=== PATIENT | male | born 1980 | race Caucasian/White ===

== ENCOUNTER 2017-12-11 10:27 | Emergency (ER) | payer OTHER ==
[~2017-12-11 10:27] MED LIST: ACCUNE1 IN; AMOXICILLIN500 MG OR; BACTRIM DS1 TAB OR; CARAFATE OR; CIPROFLOXACN500 MG PO; DOXYCYCL HYC100 M4 PO; FLEXERIL PO; LORTAB 10 PO; LORTAB 5 OR; LORTAB5 PO; MOTRIN800 MG OR; MOTRIN800 MG/TAB PO; MULTI FOR HIM PO; NAPROSYN500 MG OR; NO; NO HOME MEDS; OMEPRAZOLE20 MG PO; PREVACID30 M1 PO; PRILOSEC20 MG/CAP PO; TAM75CAP OR; TORADOL OR; VALACYCLOVIR HCL1 GM PO; VISTARIL 50MG C50 M1 PO; ZOFRAN ODT4 MG OR
== END 2017-12-11 11:00 | disposition left against medical advice (07) | DRG 951 ==
LOC: ED 10:27 → LWOBS 11:00
DX: Z91.19 Patient's noncompliance with other medical treatment and regimen (principal)

== ENCOUNTER 2021-12-17 18:02 | Emergency (ER) | payer BC ==
[2021-12-17] VITALS (7 sets, daily range): BP systolic 107–129; BP diastolic 65–81
[~2021-12-17] VITALS: Ht 172.7 cm; Wt 113.6 kg
[2021-12-17 19:46] LABS: URINE BLOOD DIPSTICK NEGATIVE (NEGATIVE); URINE COLOR YELLOW; URINE GLUCOSE - DIPSTICK NEGATIVE (NEGATIVE); URINE KETONE NEGATIVE (NEGATIVE); URINE LEUK ESTERASE NEGATIVE (NEGATIVE); URINE PROTEIN - DIPSTICK TRACE mg/dL (NEG-TRACE); URINE SPECIFIC GRAVITY >=1.030; URINE UROBILINOGEN - DIPSTICK 0.2 E.U./dL (0.2)
[2021-12-17 19:54] LABS: URINE BILIRUBIN - DIPSTICK SMALL (NEGATIVE)
[2021-12-17 19:56] LABS: IMMATURE GRANULOCYTES 0.1 % (0.0-5.0); MEAN CORPUSCULAR HGB CONC 29.4 g/dL CAL (32.0-36.0); NEUT# 5.26 thou/uL (1.82-7.42); RED BLOOD COUNT 4.04 mill/uL (4.70-6.10); RED CELL DISTRI WIDTH 17.5 % (11.5-15.5); URINE NITRITE - DIPSTICK NEGATIVE (Negative)
[2021-12-17 20:04] LABS: HEMATOCRIT 35.7 % (39.0-50.0); HEMOGLOBIN 10.5 g/dl (14.0-18.0); MEAN CELL VOLUME 88.4 fL CALC (80.0-100.0)
[2021-12-17 20:10] LABS: ALBUMIN 4.4 g/dL (3.2-5.0); ALKALINE PHOSPHATASE 92 u/l (38-126); ANION GAP 15 (6-22 (CALC)); BILIRUBIN, TOTAL 0.7 mg/dL (0.0-1.4); BUN 12 mg/dL (9-20); BUN/CREATININE RATIO 10 (12-20 (CALC)); CARBON DIOXIDE 27 mmol/l (22-30); CHLORIDE 101 mmol/l (95-108); CREATININE 1.1 mg/dL (0.7-1.3); GFR > 60 ML/MIN (>=60 (CALC)); GFR FOR AFR.AMER. > 60 ML/MIN (>=60 (CALC)); POTASSIUM 3.8 mmol/l (3.5-5.1); SGOT/AST 38 u/l (17-59); SODIUM 139 mmol/l (137-146); TOTAL PROTEIN 8.1 g/dL (6.3-8.2)
[2021-12-17] MEDS ORDERED: CELEXA20 MG PO (21:00)
[2021-12-17] MEDS ORDERED: LIPITOR40 M1 PO (21:01)
[2021-12-17] MEDS ORDERED: WELLBUTRIN XL300 MG (21:01)
[2021-12-17] MEDS ORDERED: IMODIUM2 MG PO (22:27)
== END 2021-12-17 22:44 | disposition home or self-care (01) | DRG 103 ==
LOC: ED 18:02
PROVIDERS: Family Medicine
DX: R51.9 Headache, unspecified (principal); R50.9 Fever, unspecified; M54.2 Cervicalgia; R19.7 Diarrhea, unspecified; F17.200 Nicotine dependence, unspecified, uncomplicated; Z20.822 Contact with and (suspected) exposure to COVID-19

== ENCOUNTER 2022-12-11 12:28 | Emergency (ER) | payer OTHER ==
[~2022-12-11] VITALS: Ht 172.7 cm; Wt 118.0 kg
[~2022-12-11 12:28] MED LIST changes: +CELEXA20 MG PO; +IMODIUM2 MG PO; +LIPITOR40 M1 PO; +WELLBUTRIN XL300 MG
[2022-12-11 14:36] VITALS: BP 151/81
[2022-12-11 14:45] VITALS: BP 145/78
[2022-12-11 15:08] LABS: BASO% 0.3 % (0-3); EOS% 0.4 % (0-8); HEMATOCRIT 36.2 % (39.0-50.0); HEMOGLOBIN 10.8 g/dl (14.0-18.0); IMMATURE GRANULOCYTES 0.1 % (0.0-5.0); LYMPH% 15.4 % (15-41); MEAN CELL VOLUME 87.4 fL CALC (80.0-100.0); MEAN CORPUSCULAR HGB 26.1 pG CALC (26.0-32.0); MEAN CORPUSCULAR HGB CONC 29.8 g/dL CAL (32.0-36.0); MONO% 6.3 % (2-13); NEUT# 9.29 thou/uL (1.82-7.42); NEUT% 77.5 % (42-76); RED BLOOD COUNT 4.14 mill/uL (4.70-6.10); RED CELL DISTRI WIDTH 18.1 % (11.5-15.5)
[2022-12-11 15:20] LABS: ALBUMIN 4.7 g/dL (3.2-5.0); ALKALINE PHOSPHATASE 92 u/l (38-126); ANION GAP 14 (6-22 (CALC)); BILIRUBIN, TOTAL 0.8 mg/dL (0.2-1.3); BUN 15 mg/dL (9-20); BUN/CREATININE RATIO 16 (12-20 (CALC)); CARBON DIOXIDE 27 mmol/l (22-30); CHLORIDE 102 mmol/l (95-108); GFR FOR AFR.AMER. > 60 ML/MIN (>=60 (CALC)); GFR OTHER RACES > 60 ML/MIN (>=60 (CALC)); LIPASE 117 u/l (23-300); POTASSIUM 4.5 mmol/l (3.5-5.1); SGOT/AST 35 u/l (17-59); SODIUM 139 mmol/l (137-146); TOTAL PROTEIN 8.2 g/dL (6.3-8.2)
[2022-12-11 17:14] LABS: URINE BILIRUBIN - DIPSTICK NEGATIVE (NEGATIVE); URINE BLOOD DIPSTICK NEGATIVE (NEGATIVE); URINE COLOR YELLOW; URINE GLUCOSE - DIPSTICK NEGATIVE (NEGATIVE); URINE KETONE NEGATIVE (NEGATIVE); URINE LEUK ESTERASE NEGATIVE (NEGATIVE); URINE PROTEIN - DIPSTICK NEGATIVE (NEG-TRACE); URINE UROBILINOGEN - DIPSTICK 0.2 E.U./dL (0.2)
[2022-12-11 17:15] LABS: URINE NITRITE - DIPSTICK NEGATIVE (Negative)
[2022-12-11] MEDS ORDERED: HYDROCO/APAP1 TA9 PO (18:46)
[2022-12-11] MEDS ORDERED: BENZONATATE200 MG PO (18:46)
[2022-12-11] MEDS ORDERED: DICYCLOMINE10 MG PO (18:46)
[2022-12-11 19:01] VITALS: BP 145/78
== END 2022-12-11 19:14 | disposition home or self-care (01) | DRG 392 ==
LOC: ED 12:28
PROVIDERS: Nurse Practitioner
DX: R10.9 Unspecified abdominal pain (principal)
CPT/HCPCS: Q9967

== ENCOUNTER 2023-01-01 19:05 | Emergency (ER) | payer OTHER ==
[~2023-01-01] VITALS: Ht 172.7 cm; Wt 120.0 kg
[~2023-01-01 19:05] MED LIST changes: +BENZONATATE200 MG PO; +DICYCLOMINE10 MG PO; +HYDROCO/APAP1 TA9 PO
[2023-01-01 19:36] LABS: URINE BILIRUBIN - DIPSTICK NEGATIVE (NEGATIVE); URINE BLOOD DIPSTICK NEGATIVE (NEGATIVE); URINE COLOR YELLOW; URINE GLUCOSE - DIPSTICK NEGATIVE (NEGATIVE); URINE KETONE NEGATIVE (NEGATIVE); URINE LEUK ESTERASE NEGATIVE (NEGATIVE); URINE PROTEIN - DIPSTICK NEGATIVE (NEG-TRACE); URINE SPECIFIC GRAVITY <=1.005; URINE UROBILINOGEN - DIPSTICK 0.2 E.U./dL (0.2)
[2023-01-01 19:37] LABS: BASO% 0.5 % (0-3); EOS% 1.5 % (0-8); HEMATOCRIT 34.1 % (39.0-50.0); HEMOGLOBIN 10.7 g/dl (14.0-18.0); IMMATURE GRANULOCYTES 0.1 % (0.0-5.0); LYMPH% 37.3 % (15-41); MEAN CELL VOLUME 84.2 fL CALC (80.0-100.0); MEAN CORPUSCULAR HGB 26.4 pG CALC (26.0-32.0); MEAN CORPUSCULAR HGB CONC 31.4 g/dL CAL (32.0-36.0); MONO% 8.6 % (2-13); NEUT# 3.88 thou/uL (1.82-7.42); RED BLOOD COUNT 4.05 mill/uL (4.70-6.10); RED CELL DISTRI WIDTH 18.1 % (11.5-15.5)
[2023-01-01 19:39] LABS: URINE NITRITE - DIPSTICK NEGATIVE (Negative)
[2023-01-01 19:50] LABS: ALBUMIN 4.8 g/dL (3.2-5.0); ALKALINE PHOSPHATASE 86 u/l (38-126); ANION GAP 19 (6-22 (CALC)); BILIRUBIN, TOTAL 0.5 mg/dL (0.2-1.3); BUN 14 mg/dL (9-20); BUN/CREATININE RATIO 13 (12-20 (CALC)); CARBON DIOXIDE 23 mmol/l (22-30); CHLORIDE 101 mmol/l (95-108); ETHYL ALCOHOL 228 mg/dl (0-30); GFR FOR AFR.AMER. > 60 ML/MIN (>=60 (CALC)); GFR OTHER RACES > 60 ML/MIN (>=60 (CALC)); POTASSIUM 4.1 mmol/l (3.5-5.1); SGOT/AST 35 u/l (17-59); SODIUM 139 mmol/l (137-146); TOTAL PROTEIN 7.8 g/dL (6.3-8.2)
[2023-01-01 20:02] LABS: PROTHROMBIN TIME 9.9 SECONDS (9.0-12.5)
[2023-01-01 20:13] VITALS: BP 122/73
[2023-01-01 20:15] VITALS: BP 119/64
[2023-01-01 20:16] VITALS: BP 110/66
[2023-01-01 20:31] VITALS: BP 112/58
[2023-01-01 20:32] VITALS: BP 112/58
== END 2023-01-01 20:50 | disposition home or self-care (01) | DRG 312 ==
LOC: ED 19:05
PROVIDERS: Family Medicine
DX: R55 Syncope and collapse (principal); F10.129 Alcohol abuse with intoxication, unspecified; Y90.7 Blood alcohol level of 200-239 mg/100 ml

== ENCOUNTER 2023-02-04 08:52 | Observation (INO) | payer OTHER ==
[2023-02-04] VITALS (8 sets, daily range): BP systolic 111–127; BP diastolic 48–77
[~2023-02-04] VITALS: Ht 172.7 cm; Wt 117.9 kg
[~2023-02-04 08:52] MED LIST changes: +ATORVASTATIN CA80 MG PO; +OMEPRAZOLE DR40 MG PO
--- NOTE | 2023-02-04 20:10 | NUR ---
[facility] PT STATES THAT IS PAIN AND TORADOL WAS NOT EFFECTIVE. WILL REEVALUATE. JJ DRAINED. INCICION INSPECTED AND APPEARS TO BE DOING WELL. PT IS SITTING UP IN RECLINER. STATES THAT ITS THE MOST COMFORTABLE SPOT.CALL LIGHT WITHIN REACH AND SAFETY PRECAUTION IN PLACE.
--- NOTE | 2023-02-05 00:20 | NUR ---
PT IS IN REMIGIO SITTING UP DUE TO THE PAIN ABDOMEN. PT STATES THAT PAIN IS STILL A 7 OUT OF 10. MED ADMINISTERED. CALL LIGHT WITHIN REACH AND SAFETY PRECAUTIONS IN PLACE.
[2023-02-05 04:00] VITALS: BP 106/57
[2023-02-05 04:38] VITALS: BP 106/57
--- NOTE | 2023-02-05 04:40 | NUR ---
PT IS SITTING UP IN BED. PT STATES THAT HE CURRENTLY DOES NOT NEED ANYTHING FOR PAIN PT STATES THAT THERE IS NO PAIN WHEN THERE IS NO MOVEMENT. CALL LIGHT WITHIN REACH AND SAFETY PRCAUTIONS IN PLACE.
[2023-02-05 05:48] LABS: BASO% 0.4 % (0-3); EOS% 1.4 % (0-8); HEMATOCRIT 31.9 % (39.0-50.0); HEMOGLOBIN 9.2 g/dl (14.0-18.0); IMMATURE GRANULOCYTES 0.1 % (0.0-5.0); LYMPH% 27.5 % (15-41); MEAN CELL VOLUME 88.6 fL CALC (80.0-100.0); MEAN CORPUSCULAR HGB 25.6 pG CALC (26.0-32.0); MEAN CORPUSCULAR HGB CONC 28.8 g/dL CAL (32.0-36.0); MONO% 11.3 % (2-13); NEUT# 4.71 thou/uL (1.82-7.42); NEUT% 59.3 % (42-76); RED BLOOD COUNT 3.6 mill/uL (4.70-6.10); RED CELL DISTRI WIDTH 17.2 % (11.5-15.5)
[2023-02-05 07:30] VITALS: BP 107/56
--- NOTE | 2023-02-05 07:35 | NUR ---
PT UP TO CHAIR. STATES PAIN IS STILL HIGH, BUT BETTER, MOVEMENT EASIER. VSS. ALL SAFETY MEASURES IN PLACE.
[2023-02-05 16:30] VITALS: BP 110/60
[2023-02-05 18:35] VITALS: BP 114/64
--- NOTE | 2023-02-05 19:35 | NUR ---
BEDSIDE REPORT RECEIVED FROM OFF GOING NURSE. [facility]. PATIENT IS POST-OP DAY 2. HAS C/O PAIN BUT STATES IT IS BAREABLE. ABDOMINAL BINDER IN PLACE. FAMILY AT BEDSIDE. HEAD TO TOE ASSESSMENT COMPLETED. CALL PLACE WITHIN REACH.
--- NOTE | 2023-02-05 23:57 | NUR ---
PATIENT AWAKE. WATCHING TV IN BED. C/O ACHING PAIN TO ABDOMEN. ABDOMINAL BINDER REMIANS IN PLACE. JJ DRAIN HAS BLOODY DRAINAGE AT THIS TIME. SURGICAL SITE INTACT AND NO SIGNS OR SYMPTOMS OF INFECTION NOTED. CALL LIGHT WITHIN REACH.
--- NOTE | 2023-02-06 02:48 | NUR ---
PATIENT ASLEEP AT THIS TIME. RESPIRATIONS EVEN AND UNLABORED. NO SIGNS OF DISTRESS NOTED. CALL LIGHT WITHIN REACH.
[2023-02-06 04:21] VITALS: BP 95/58
[2023-02-06 05:12] VITALS: BP 95/58
--- NOTE | 2023-02-06 07:30 | NUR ---
RECIEVED BEDSIDE REPORT FROM NIGHT NURSE, PATIENT IS INDEPENDENT, NO BED ALARM, PATIENT HAS NO ISSUES WITH URINATION, PAIN CONTROLED WITH DILAUDID, AND PERCOCET, LBM January , PROVIDER NOTIFIED , ORDERS RECIEVED.
[2023-02-06 08:11] VITALS: BP 111/49
--- NOTE | 2023-02-06 12:00 | NUR ---
PATIENT IN ROOM WITH AWAITING PROVIDER, PAIN MEDS GIVEN, DRESSING FOR JJ INTACT, SMALLL BLISTER FROM JJ TUBING NOTED, PATIENT EDUCATED TO POSITIONG OG TUBING, WOUND AREAS SHOW NO S/S OF INFECTION.
[2023-02-06 12:28] VITALS: BP 124/68
[2023-02-06] MEDS ORDERED: PERCOCET 5/325M1 TAB PO (12:53)
[2023-02-06] MEDS ORDERED: AMOX/K CLAV875 M1 PO (12:55)
--- NOTE | 2023-02-06 13:48 | NUR ---
PATIENT TAKEN TO LOBBY VIA WHEELCHAIR, DISCHARGE EDUCATION GIVEN ON CARE OF THE JJ DRAIN, ALONG WITH HOW TO EMPTY AND MONITOR OUTPUT. TEACHING WAS UNDERSTOOD NO QUESTIONS, IV REMOVED.
== END 2023-02-06 13:48 | disposition home or self-care (01) | DRG 355 ==
LOC: ORM 08:52 → MS2 14:53
PROVIDERS: ADMIT Surgery; ATTEND Surgery
PROC: 0WUF0JZ Supplement Abdominal Wall with Synthetic Substitute, Open Approach (ICD-10-PCS; principal; 2023-02-04)
PROC: 0WJF4ZZ Inspection of Abdominal Wall, Percutaneous Endoscopic Approach (ICD-10-PCS; 2023-02-04)
DX: K43.2 Incisional hernia without obstruction or gangrene (principal); F32.A Depression, unspecified; F41.9 Anxiety disorder, unspecified
CPT/HCPCS: J0131; J0690

== ENCOUNTER 2023-11-03 19:23 | Emergency (ER) | payer OTHER ==
[~2023-11-03] VITALS: Ht 172.7 cm; Wt 113.0 kg
[~2023-11-03 19:23] MED LIST changes: +AMOX/K CLAV875 M1 PO; +PERCOCET 5/325M1 TAB PO
[2023-11-03] MEDS ORDERED: SODIUM CHLORIDE 0.9% 1,000 ML IV ONE ×3 (21:30)
[2023-11-03 22:16] LABS: URINE BILIRUBIN - DIPSTICK Negative (NEGATIVE); URINE BLOOD DIPSTICK Negative (NEGATIVE); URINE GLUCOSE - DIPSTICK Negative (NEGATIVE); URINE KETONE Negative (NEGATIVE); URINE LEUK ESTERASE Negative (NEGATIVE); URINE NITRITE - DIPSTICK Negative (Negative); URINE PROTEIN - DIPSTICK Negative (NEG-TRACE); URINE UROBILINOGEN - DIPSTICK 0.2 E.U./dL (0.2)
[2023-11-03 22:17] LABS: URINE COLOR Yellow
[2023-11-03 22:26] LABS: BASO% 0.1 % (0-3); EOS% 0.1 % (0-8); HEMATOCRIT 33.8 % (39.0-50.0); HEMOGLOBIN 10.4 g/dl (14.0-18.0); IMMATURE GRANULOCYTES 0.2 % (0.0-5.0); LYMPH% 12.6 % (15-41); MEAN CELL VOLUME 84.9 fL CALC (80.0-100.0); MEAN CORPUSCULAR HGB 26.1 pG CALC (26.0-32.0); MEAN CORPUSCULAR HGB CONC 30.8 g/dL CAL (32.0-36.0); MONO% 9.4 % (2-13); NEUT# 9.77 thou/uL (1.82-7.42); NEUT% 77.6 % (42-76); RED BLOOD COUNT 3.98 mill/uL (4.70-6.10); RED CELL DISTRI WIDTH 17.4 % (11.5-15.5)
[2023-11-03 23:10] VITALS: BP 131/65
[2023-11-03 23:16] VITALS: BP 112/47
[2023-11-03 23:17] LABS: ALBUMIN 4.7 g/dL (3.2-5.0); ALKALINE PHOSPHATASE 70 u/l (38-126); ANION GAP 13 (6-22 (CALC)); BILIRUBIN, TOTAL 1.2 mg/dL (0.2-1.3); BUN 12 mg/dL (9-20); BUN/CREATININE RATIO 12 (12-20 (CALC)); CHLORIDE 101 mmol/l (95-108); CREATININE 1.1 mg/dL (0.7-1.3); GFR FOR AFR.AMER. > 60 ML/MIN (>=60 (CALC)); GFR OTHER RACES > 60 ML/MIN (>=60 (CALC)); POTASSIUM 4.3 mmol/l (3.5-5.1); SGOT/AST 36 u/l (17-59); SODIUM 139 mmol/l (137-146); TOTAL PROTEIN 7.7 g/dL (6.3-8.2)
[2023-11-03 23:18] LABS: CARBON DIOXIDE 29 mmol/l (22-30)
[2023-11-03 23:30] VITALS: BP 124/60
[2023-11-03 23:46] VITALS: BP 121/68
[2023-11-04 00:01] VITALS: BP 122/62
[2023-11-04] MEDS ORDERED: CLINDAMYCIN300 M1 PO (00:06)
[2023-11-04] MEDS ORDERED: VIBRAMYCIN100 M2 PO (00:06)
[2023-11-04 00:16] VITALS: BP 121/66
[2023-11-04 00:31] VITALS: BP 104/79
== END 2023-11-04 01:15 | disposition home or self-care (01) | DRG 866 ==
LOC: ED 19:23
PROVIDERS: Emergency Medicine
DX: B34.9 Viral infection, unspecified (principal); Z98.890 Other specified postprocedural states; Z72.0 Tobacco use; Z20.822 Contact with and (suspected) exposure to COVID-19